=== PATIENT | male | born 1965 | race Caucasian/White ===

== ENCOUNTER 2017-10-28 20:16 | Emergency (ER) | payer BC ==
[~2017-10-28] VITALS: Ht 175.3 cm; Wt 81.6 kg
[2017-10-28 20:45] VITALS: BP 165/97
[2017-10-28] MEDS ORDERED: OSELTAMIVIR PHOSPHATE 75 MG CAPSULE PO ONE (21:30)
[2017-10-28] MEDS ORDERED: OSELTAMIVIR PHOSPHATE 75 MG CAPSULE ONE (21:31)
[2017-10-28] MEDS ORDERED: ONDANSETRON 4 MG TAB.RAPDIS ONE (21:33)
[2017-10-28] MEDS ORDERED: ONDANSETRON 4 MG TAB.RAPDIS PO ONE (22:00)
== END 2017-10-28 22:01 | disposition home or self-care (01) ==
LOC: ER 20:20
DX: J11.1 Influenza due to unidentified influenza virus with other respiratory manifestations (principal)
CPT/HCPCS: A4606; Q0162; Z7610